=== PATIENT | female | born 1990 | race African-American/Black ===

== ENCOUNTER 2017-02-12 18:59 | Emergency (ER) | payer OTHER ==
[~2017-02-12] VITALS: Ht 160 cm; Wt 150.5 kg
[2017-02-12 19:09] VITALS: BP 151/86; PULSE 78; RESP 16; TEMP 98.3; O2SAT 98
[2017-02-12] MEDS ORDERED: MIREIUD I-UTERINE (19:30)
[2017-02-12] MEDS ORDERED: CYCL1TAB29 PO (19:50)
[2017-02-12] MEDS ORDERED: IBUP800T23 PO (19:50)
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
== END 2017-02-12 20:00 | disposition home or self-care (01) ==
LOC: PHED 18:59 → PHEFT 20:00
DX: S16.1XXA Strain of muscle, fascia and tendon at neck level, initial encounter (principal); M62.838 Other muscle spasm; I10 Essential (primary) hypertension; Z87.2 Personal history of diseases of the skin and subcutaneous tissue; Z87.19 Personal history of other diseases of the digestive system; V89.2XXA Person injured in unspecified motor-vehicle accident, traffic, initial encounter; Y92.410 Unspecified street and highway as the place of occurrence of the external cause
CPT/HCPCS: 99283

== ENCOUNTER 2017-06-02 17:26 | Emergency (ER) | payer OTHER ==
[~2017-06-02] VITALS: Ht 160 cm; Wt 145.0 kg
[~2017-06-02 17:26] MED LIST: CYCL1TAB29 PO; IBUP800T23 PO; MIREIUD I-UTERINE
[2017-06-02 17:28] VITALS: BP 167/78; PULSE 67; RESP 18; TEMP 98.7; O2SAT 97
--- NOTE | 2017-06-02 17:38 | PD ---
Physical Exam Time Seen by Provider: 17:36 Narrative 26yop F c/o left sided chest pain and left arm pain since this morning. Sent by Dr. Piña. Denies SOB. +dizziness and lightheadedness. Pain is constant. Patient seen in triage. VS reviewed. Awaiting bed placement. Data Data Last Documented VS Vital Signs Date Time Temp Pulse Resp B/P Pulse Ox O2 Delivery O2 Flow Rate FiO2 06/02/17 17:28 98.7 67 18 167/78 97 Room Air [facility] Supervised Visit with DONAVAN: Zo Leger Jun 02, 2017 17:38
--- NOTE | 2017-06-02 18:01 | PD ---
HPI Chief Complaint: Chest Pain Time Seen by Provider: 18:01 Travel History International Travel<30 days: No Contact w/Intl Traveler<30days: No Traveled to known affect area: No History of Present Illness HPI 26-year-old female came to the emergency room with history of left-sided chest pain that started 9:30 to 10 AM today. It's radiating down her left arm which is squeezing kind of pain. The pain was not easing up so she went to see her primary care. They gave her 2 baby aspirin and a nitroglycerin and sent her to the emergency room. Patient does not think the medication helped her with the pain. She has never experienced this kind of pain before. No history of shortness of breath. No aggravating or relieving factors identified. She is not a smoker. No history of heart attack among young people in the family or sudden cardiac deaths. [facility] Past Medical History Narrative Medical List of her past medical, surgical, social and family history was reviewed from the nursing note. Anemia: Yes ( RELATED) Diabetes: No Diminished Hearing: No Hypertension: Yes Immune Disorder: No Integumentary: Yes (EZCEMA) Immunizations Current: No Pancreatitis: Yes ?: Not Menopausal: No : 1 Para: 1 Miscarriage: 0 Past Surgical History Section: Yes Social History Alcohol Use: No Tobacco Use: No Substance Use: No Allergies-Medications (Allergen,Severity, Reaction): Coded Allergies: No Known Allergies (Verified , 06/02/17) Comments No known drug allergies. Reported Meds & Prescriptions Reported Meds & Active Scripts Active EC-Naprosyn (Naproxen) 500 Mg Tabdr 500 Mg PO BID PRN Narrative Medication List of his home medications reviewed from the nursing note. Review of Systems Except as stated in HPI: all other systems reviewed are Neg Physical Exam Narrative GENERAL: Awake, alert, morbidly obese, mild distress SKIN: Focused skin assessment warm/dry. HEAD: Atraumatic. Normocephalic. EYES: Pupils equal and round. No scleral icterus. No injection or drainage. ENT: No nasal bleeding or discharge. Mucous membranes pink and moist. NECK: Trachea midline. No JVD. CARDIOVASCULAR: Regular rate and rhythm. No murmur appreciated. Patient was tender on chest wall palpation on the left side. RESPIRATORY: No accessory muscle use. Clear to auscultation. Breath sounds equal bilaterally. GASTROINTESTINAL: Abdomen soft, non-tender, nondistended. Hepatic and splenic margins not palpable. MUSCULOSKELETAL: No obvious deformities. No clubbing. No cyanosis. No edema. NEUROLOGICAL: Awake and alert. No obvious cranial nerve deficits. Motor grossly within normal limits. Normal speech. PSYCHIATRIC: Appropriate mood and affect; insight and judgment normal. Data Data Last Documented VS Vital Signs Date Time Temp Pulse Resp B/P Pulse Ox O2 Delivery O2 Flow Rate FiO2 06/02/17 21:37 62 20 132/70 100 06/02/17 19:36 Room Air 06/02/17 17:28 98.7 Orders Electrocardiogram (06/02/17 18:10) Basic Metabolic Panel (Bmp) (06/02/17 18:10) Ckmb (Isoenzyme) Profile (06/02/17 18:10) Complete Blood Count With Diff (06/02/17 18:10) Magnesium (Mg) (06/02/17 18:10) Prothrombin Time / Inr (Pt) (06/02/17 18:10) Act Partial Throm Time (Ptt) (06/02/17 18:10) Troponin I (06/02/17 18:10) Chest, Single Ap (06/02/17 18:10) Ecg Monitoring (06/02/17 18:10) Bilateral Bp Monitoring (06/02/17 18:10) Iv Access Insert/Monitor (06/02/17 18:10) Oximetry (06/02/17 18:10) Oxygen Administration (06/02/17 18:10) Sodium Chloride 0.9% Flush (Ns Flush) (06/02/17 18:15) Ed Urine Pregnancytest Poc (06/02/17 18:10) Ketorolac Inj (Toradol Inj) (06/02/17 18:15) CKMB (06/02/17 19:50) CKMB% (06/02/17 19:50) Labs Laboratory Tests Test 06/02/17 19:50 White Blood Count 11.8 TH/MM3 Red Blood Count 3.80 MIL/MM3 Hemoglobin 11.2 GM/DL Hematocrit 34.0 % Mean Corpuscular Volume 89.4 FL Mean Corpuscular Hemoglobin 29.5 PG Mean Corpuscular Hemoglobin 33.0 % Concent Red Cell Distribution Width 14.0 % Platelet Count 257 TH/MM3 Mean Platelet Volume 10.8 FL Neutrophils (%) (Auto) 70.1 % Lymphocytes (%) (Auto) 25.6 % Monocytes (%) (Auto) 3.1 % Eosinophils (%) (Auto) 0.5 % Basophils (%) (Auto) 0.7 % Neutrophils # (Auto) 8.3 TH/MM3 Lymphocytes # (Auto) 3.0 TH/MM3 Monocytes # (Auto) 0.4 TH/MM3 Eosinophils # (Auto) 0.1 TH/MM3 Basophils # (Auto) 0.1 TH/MM3 CBC Comment DIFF FINAL Differential Comment Prothrombin Time 11.1 SEC Prothromb Time International 1.0 RATIO Ratio Activated Partial 26.2 SEC Thromboplast Time Sodium Level 137 MEQ/L Potassium Level 4.0 MEQ/L Chloride Level 103 MEQ/L Carbon Dioxide Level 27.5 MEQ/L Anion Gap 7 MEQ/L Blood Urea Nitrogen 8 MG/DL Creatinine 0.75 MG/DL Estimat Glomerular Filtration 112 ML/MIN Rate Random Glucose 84 MG/DL Calcium Level 8.6 MG/DL Magnesium Level 2.0 MG/DL Total Creatine Kinase 175 U/L Creatine Kinase MB 0.5 NG/ML Troponin I LESS THAN 0.02 NG/ML MDM Medical Decision Making Medical Screen Exam Complete: Yes Emergency Medical Condition: Yes Medical Record Reviewed: Yes Interpretation(s) Twelve-lead EKG was reviewed by me. Normal sinus rhythm, normal axis, nonspecific ST-T wave changes. Heart rate of 71 bpm. Differential Diagnosis ACS, chest wall pain Narrative Course 7:16 PM awaiting for the blood test result. Patient was signed over to the oncoming ER physician. Procedures EKG Prior to Arrival: No Scripts Naproxen DR (EC-Naprosyn)500 Mg [id number] Mg PO BID PRN (PAIN GREATER THAN 5) # 10 TAB Ref 0 Prov:Karen Simmons MD 06/02/17 Ursula Aguilera MD Jun 02, 2017 18:01
[2017-06-02] MEDS ORDERED: SODIUM CHLORIDE 0.9% FLUSH 10 ML FLUSH IVF PRN (18:15)
[2017-06-02] MEDS ORDERED: KETOROLAC TROMETHAMINE 30 MG/ML (IVP) VIAL IV PUSH ONE (18:15)
--- NOTE | 2017-06-02 18:41 | RADRPT ---
EXAM DATE/TIME: 06/02/2017 18:06 [facility] COMPARISON: No previous studies available for comparison. INDICATIONS : Chest pain. MEDICAL HISTORY : None. SURGICAL HISTORY : None. ENCOUNTER: Initial ACUITY: 1 day PAIN SCORE: 10/10 LOCATION: Bilateral chest FINDINGS: A single view of the chest demonstrates the lungs to be symmetrically aerated without evidence of mas s, infiltrate or effusion. The cardiomediastinal contours are unremarkable. Osseous structures are intact. CONCLUSION: No evidence of acute cardiopulmonary disease. Memo Leonard MD on June 02, 2017 at 18:38 Board Certified Radiologist. This report was verified electronically.
--- NOTE | 2017-06-02 19:06 | PD ---
Data Data Last Documented VS Vital Signs Date Time Temp Pulse Resp B/P Pulse Ox O2 Delivery O2 Flow Rate FiO2 06/02/17 19:36 98 Room Air 06/02/17 19:33 65 20 136/71 141/63 06/02/17 17:28 98.7 Orders Electrocardiogram (06/02/17 18:10) Basic Metabolic Panel (Bmp) (06/02/17 18:10) Ckmb (Isoenzyme) Profile (06/02/17 18:10) Complete Blood Count With Diff (06/02/17 18:10) Magnesium (Mg) (06/02/17 18:10) Prothrombin Time / Inr (Pt) (06/02/17 18:10) Act Partial Throm Time (Ptt) (06/02/17 18:10) Troponin I (06/02/17 18:10) Chest, Single Ap (06/02/17 18:10) Ecg Monitoring (06/02/17 18:10) Bilateral Bp Monitoring (06/02/17 18:10) Iv Access Insert/Monitor (06/02/17 18:10) Oximetry (06/02/17 18:10) Oxygen Administration (06/02/17 18:10) Sodium Chloride 0.9% Flush (Ns Flush) (06/02/17 18:15) Ed Urine Pregnancytest Poc (06/02/17 18:10) Ketorolac Inj (Toradol Inj) (06/02/17 18:15) CKMB (06/02/17 19:50) CKMB% (06/02/17 19:50) Labs Laboratory Tests Test 06/02/17 19:50 White Blood Count 11.8 TH/MM3 Red Blood Count 3.80 MIL/MM3 Hemoglobin 11.2 GM/DL Hematocrit 34.0 % Mean Corpuscular Volume 89.4 FL Mean Corpuscular Hemoglobin 29.5 PG Mean Corpuscular Hemoglobin 33.0 % Concent Red Cell Distribution Width 14.0 % Platelet Count 257 TH/MM3 Mean Platelet Volume 10.8 FL Neutrophils (%) (Auto) 70.1 % Lymphocytes (%) (Auto) 25.6 % Monocytes (%) (Auto) 3.1 % Eosinophils (%) (Auto) 0.5 % Basophils (%) (Auto) 0.7 % Neutrophils # (Auto) 8.3 TH/MM3 Lymphocytes # (Auto) 3.0 TH/MM3 Monocytes # (Auto) 0.4 TH/MM3 Eosinophils # (Auto) 0.1 TH/MM3 Basophils # (Auto) 0.1 TH/MM3 CBC Comment DIFF FINAL Differential Comment Prothrombin Time 11.1 SEC Prothromb Time International 1.0 RATIO Ratio Activated Partial 26.2 SEC Thromboplast Time Sodium Level 137 MEQ/L Potassium Level 4.0 MEQ/L Chloride Level 103 MEQ/L Carbon Dioxide Level 27.5 MEQ/L Anion Gap 7 MEQ/L Blood Urea Nitrogen 8 MG/DL Creatinine 0.75 MG/DL Estimat Glomerular Filtration 112 ML/MIN Rate Random Glucose 84 MG/DL Calcium Level 8.6 MG/DL Magnesium Level 2.0 MG/DL Total Creatine Kinase 175 U/L Creatine Kinase MB 0.5 NG/ML Troponin I LESS THAN 0.02 NG/ML [facility] Medical Record Reviewed: Yes Supervised Visit with DONAVAN: No Interpretation(s) Last Impressions Chest X-Ray 06/02/17 1810 Signed Impressions: Service Date/Time: Friday, June 02, 2017 18:06 - CONCLUSION: No evidence of acute cardiopulmonary disease. Memo Leonard MD Differential Diagnosis Chest wall pain related to costochondritis, versus musculoskeletal strain, versus acute coronary syndrome Narrative Course During the course of the patients emergency department visit, the patients history, examination, and differential diagnosis were reviewed with the patient. The patient had IV access obtained and blood work sent for analysis. The patient's case was checked out to me by Dr. Aguilera. Please see her complete history and physical. The patient was initially provided Toradol 30 mg IV for pain. The patients laboratory studies were reviewed and remarkable for a white count of 11.8, hemoglobin 11.2, platelets 257 with 70.1 neutrophils, basic metabolic profile is unremarkable, magnesium 2.0, CPK 175, troponin I less than 0.02 ruling out an acute coronary syndrome as the patient reports having constant chest pain since early this morning. PT 11.1, PTT 26.2. Radiology studies were reviewed and remarkable for a chest x-ray that shows no evidence of acute cardiopulmonary disease. The patient will be discharged home with a chip soliman for an anti-inflammatory pain medication. The patient is resting comfortably and feels better, is alert and in no distress. The patients results and examination findings were discussed with the patient. The repeat examination is unremarkable and benign. The history, exam, diagnostic testing, and current condition do not suggest any significant pathology to warrant further testing, continued ED treatment, admission, or surgical evaluation at this point. The vital signs have been stable. The patient does not have uncontrollable pain, intractable vomiting, or other significant symptoms. The patient's condition is stable and appropriate for discharge. The patient will pursue further outpatient evaluation with a primary care physician or other designated or consulting physician as indicated in the discharge instructions. The patient expressed understanding and was agreeable with this plan. Diagnosis Primary Impression: Chest wall pain Referrals: Primary Care Physician 1 week Patient Instructions: Chest Wall Pain (ED), General Instructions Med/Other Pt SpecificInfo: Prescription(s) given Scripts Naproxen DR (EC-Naprosyn)500 Mg [id number] Mg PO BID PRN (PAIN GREATER THAN 5) # 10 TAB Ref 0 Prov:Karen Simmons MD 06/02/17 Disposition: 01 DISCHARGE HOME Condition: Stable Karen Simmons MD Jun 02, 2017 19:06
[2017-06-02 19:33] VITALS: BP_SYST 136; BP_SYST 141; BP_DIAS 63; BP_DIAS 71; PULSE 65; RESP 20; O2SAT 98
[2017-06-02 20:38] LABS: AUTOMATED NEUTROPHIL # 8.3 TH/MM3 (1.8-7.7); BASOPHIL # 0.1 TH/MM3 (0-0.2); BASOPHIL % 0.7 % (0.0-2.0); EOSINOPHIL # 0.1 TH/MM3 (0-0.4); EOSINOPHIL % 0.5 % (0.0-4.0); HEMO FLAGS DIFF FINAL; LYMPH % 25.6 % (9.0-44.0); MEAN CELL VOLUME 89.4 FL (80.0-100.0); MEAN CORPUSCULAR HEMOGLOBIN 29.5 PG (27.0-34.0); MONO % 3.1 % (0.0-8.0); NEUT % 70.1 % (16.0-70.0); PLATELET COUNT 257 TH/MM3 (150-450); WHITE BLOOD COUNT 11.8 TH/MM3 (4.0-11.0)
[2017-06-02 20:49] LABS: APTT (PATIENT) 26.2 SEC (24.3-30.1); PROTHROMBIN TIME - PATIENT 11.1 SEC (9.8-11.6)
[2017-06-02 20:50] LABS: ANION GAP 7 MEQ/L (5-15); BICARBONATE 27.5 MEQ/L (21.0-32.0); BLOOD UREA NITROGEN 8 MG/DL (7-18); CHLORIDE 103 MEQ/L (98-107); GLOMERULAR FILTRATION RATE 112 ML/MIN (>89); SODIUM (NA) 137 MEQ/L (136-145)
[2017-06-02 20:56] LABS: CREATINE KINASE 175 U/L (26-192)
[2017-06-02 21:09] LABS: CKMB 0.5 NG/ML (0.5-3.6)
[2017-06-02] MEDS ORDERED: EC-N500T PO (21:20)
[2017-06-02 21:37] VITALS: BP 132/70
--- NOTE | 2017-06-03 05:09 | EKG ---
Date Performed: 06/02/2017 Time Performed: 18:31:22 PTAGE: 26 years EKG: Sinus rhythm WITH SINUS ARRHYTHMIA MINIMAL VOLTAGE CRITERIA FOR LVH, CONSIDER NORMAL VARIANT BORDERLINE ECG Dominic red to prior tracing no significant change PREVIOUS TRACING : 10/18/2015 18.47 DOCTOR: Timothy Bhatia Interpretating Date/Time 06/03/2017 05:08:45
== END 2017-06-02 22:38 | disposition home or self-care (01) ==
LOC: NEPC 17:26
DX: R07.89 Other chest pain (principal); M79.602 Pain in left arm; R94.31 Abnormal electrocardiogram [ECG] [EKG]; I10 Essential (primary) hypertension; Z87.2 Personal history of diseases of the skin and subcutaneous tissue; Z87.19 Personal history of other diseases of the digestive system
CPT/HCPCS: 71010; 80048; 82550; 82552; 83735; 84484; 84703; 85025; 85610; 85730; 93005; 96374; 99285; J1885

== ENCOUNTER 2017-06-15 22:19 | Emergency (ER) | payer OTHER ==
[~2017-06-15 22:19] MED LIST changes: -CYCL1TAB29 PO; +EC-N500T PO; -IBUP800T23 PO; -MIREIUD I-UTERINE
[2017-06-15 22:22] VITALS: BP 150/91; PULSE 81; RESP 16; TEMP 98.7; O2SAT 97
[2017-06-15] MEDS ORDERED: FAMOTIDINE INJ 20 MG in SODIUM CHLORIDE 0.9% INJ 98 ML IV STA (22:51)
[2017-06-15] MEDS ORDERED: methylPREDNISolone SOD SUCC 125 MG/2 ML VIAL IV PUSH ONE (23:00)
[2017-06-15] MEDS ORDERED: diphenhydrAMINE HCL 50 MG/ML VIAL IV PUSH ONE (23:00)
[2017-06-15] MEDS ORDERED: SODIUM CHLOR 0.9% 1000 ML INJ 1,000 ML IV ONE (23:15)
[2017-06-15] MEDS ORDERED: MEDR4PAK PO (23:21)
[2017-06-15] MEDS ORDERED: BENA25TA6 PO (23:21)
[2017-06-15] MEDS ORDERED: FAMO20TA2 PO (23:21)
[2017-06-15] MEDS ORDERED: EPIP0.3I IM (23:21)
--- NOTE | 2017-06-15 23:22 | PD ---
HPI Chief Complaint: Allergic/Adverse Reaction Time Seen by Provider: 22:49 Travel History International Travel<30 days: No Contact w/Intl Traveler<30days: No Traveled to known affect area: No History of Present Illness HPI The patient is a 26 year old female who presents to the [facility] emergency department with a history of developing an allergic reaction approximately 10-15 minutes prior to arrival. The patient reports that she was approximately 7-10 minutes into drinking a cup of cranberry juice with vodka when she began to have generalized itching. She reports that she did have some abdominal cramping and a sensation that she needed to move her bowels, however she has not. She reports that she has shortness of breath with exertion when coming back to the emergency department bed. She reports that she had a similar reaction with drinking vodka last year. She reports that she had also tried a new topical medication and was unsure whether it was related to that or the vodka, however this evening she was drinking the same vodka again and had a similar reaction. The patient arrives with generalized hives. The patient reports having nausea. She denies having any chest pain. On review of systems , she denies having any recent fevers, cough, congestion, neck pain, vomiting, diarrhea, urinary symptoms, or neurologic symptoms. [facility] Past Medical History Narrative Medical The patient's past medical history is significant for eczema, history of hypertension. Anemia: Yes ( RELATED) Diabetes: No Diminished Hearing: No Hypertension: Yes (no meds) Immune Disorder: No Integumentary: Yes (EZCEMA) Immunizations Current: No Pancreatitis: Yes ?: Not Menopausal: No : 1 Para: 1 Miscarriage: 0 : 0 Past Surgical History Narrative Surgical The patient's past surgical history is significant for a . Section: Yes Social History Alcohol Use: Yes (RARE) Tobacco Use: No Substance Use: No Allergies-Medications (Allergen,Severity, Reaction): Coded Allergies: No Known Allergies (Verified , 06/02/17) Reported Meds & Prescriptions Reported Meds & Active Scripts Active Medrol Dosepak (Methylprednisolone) 4 Mg Dspk 4 Mg PO DIRECTED Per Pharmacist direction Benadryl Allergy (Diphenhydramine HCl) 25 Mg Tablet 1 Tab PO Q6HR 3 Days Famotidine 20 Mg Tab 20 Mg PO BID 7 Days Epipen 2-Luiz Inj (Epinephrine) 0.3 Mg/0.3 Ml Pfpen 0.3 Mg IM ONCE PRN EC-Naprosyn (Naproxen) 500 Mg Tabdr 500 Mg PO BID PRN Review of Systems Except as stated in HPI: all other systems reviewed are Neg General / Constitutional: No: Fever Eyes: No: Visual changes HENT: No: Headaches Cardiovascular: Positive: Dyspnea on exertion, No: Chest Pain or Discomfort Respiratory: No: Cough, Shortness of Breath Gastrointestinal: Positive: Nausea, Abdominal Pain (cramping prior to arrival) , No: Vomiting, Diarrhea, Hematemesis, Hematochezia, Constipation, Changes in Bowel Habits, Indigestion, Loss of Appetite Genitourinary: No: Dysuria Musculoskeletal: No: Pain Skin: Positive Rash, Positive Itching, Positive Hives Neurologic: No: Weakness, Focal Abnormalities, Change in Mentation, Slurred Speech, Sensory Disturbance Psychiatric: No: Depression Endocrine: No: Polydipsia Hematologic/Lymphatic: No: Easy Bruising Physical Exam Narrative General: The patient is a well-developed well-nourished female, uncomfortable appearing on my arrival to the room due to diffuse skin burning/itching. Head and Neck exam: Head is normocephalic atraumatic. Eyes: EOMI, pupils are equal round and reactive to light. Nose: Midline septum with pink mucous membranes Mouth: Dentition unremarkable. Moist mucus membranes. Posterior oropharynx is not erythematous. No tonsillar hypertrophy. Uvula midline. Airway patent. No tongue swelling. No posterior oropharynx swelling. Neck: No palpable lymphadenopathy. No nuchal rigidity. No thyromegaly. Cardiovascular: Regular rate and rhythm without murmurs, gallops, or rubs. Lungs: Clear to auscultation bilaterally. No wheezes, rhonchi, or rales. Abdomen: Soft, without tenderness to palpation in all 4 quadrants of the abdomen. No guarding, rebound, or rigidity. Normal bowel sounds are audible. No tenderness on palpation of McBurney's point. Extremities: No clubbing, cyanosis, or edema. 2+ pulses in all 4 extremities. tenderness on palpation. Back: No spinous process tenderness to palpation. No costovertebral angle tenderness to palpation. Neurologic Exam: Grossly nonfocal. Skin Exam: The patient has skin erythema with scattered urticaria noted on her upper and lower extremities as well as her trunk. Data Data Last Documented VS Vital Signs Date Time Temp Pulse Resp B/P (MAP) Pulse Ox O2 Delivery O2 Flow Rate FiO2 06/16/17 01:05 06/15/17 22:22 98.7 81 16 97 Room Air Orders Orders Iv Access Insert/Monitor (06/15/17 22:51) Ecg Monitoring (06/15/17 22:51) Oximetry (06/15/17 22:51) Methylprednisolone So Succ Inj (Solumedr (06/15/17 23:00) Diphenhydramine Inj (Benadryl Inj) (06/15/17 23:00) Famotidine Inj (Pepcid Inj) (06/15/17 22:51) Sodium Chlor 0.9% 1000 Ml Inj (Ns 1000 M (06/15/17 23:15) Albuterol-Ipratropium Neb (Duoneb Neb) (06/15/17 23:45) MDM Medical Decision Making Medical Screen Exam Complete: Yes Emergency Medical Condition: Yes Medical Record Reviewed: Yes Differential Diagnosis Allergic reaction, versus angioedema Narrative Course During the course of the patients emergency department visit, the patients history, examination, and differential diagnosis were reviewed with the patient. The patient had IV access obtained and blood work sent for analysis. The patient was placed on a air sampling and monitoring with oximetry and blood pressure monitoring. The patient was initially provided famotidine 20 mg IV, Benadryl 25 mg IV (the patient took Benadryl 25 mg by mouth prior to arrival), Solu-Medrol 125 mg IV, normal saline 1 L IV fluid bolus, and a DuoNeb 1. The patient will be discharged home with a prescription for Medrol Dosepak taper , Benadryl, famotidine, and an EpiPen. The patient was instructed to avoid vodka in the future. The patient was observed and had improvement in her symptoms. The patient is resting comfortably and feels better, is alert and in no distress. The patients results and examination findings were discussed with the patient. The repeat examination is unremarkable and benign. The history, exam, diagnostic testing, and current condition do not suggest any significant pathology to warrant further testing, continued ED treatment, admission, or surgical evaluation at this point. The vital signs have been stable. The patient does not have uncontrollable pain, intractable vomiting, or other significant symptoms. The patient's condition is stable and appropriate for discharge. The patient will pursue further outpatient evaluation with a primary care physician or other designated or consulting physician as indicated in the discharge instructions. The patient expressed understanding and was agreeable with this plan. Diagnosis Primary Impression: Allergic reaction Qualified Codes: T78.40XA - Allergy, unspecified, initial encounter Referrals: Primary Care Physician 2 days Patient Instructions: General Allergic Reaction (ED), General Instructions Med/Other Pt SpecificInfo: Prescription(s) given Scripts Methylprednisolone Dosepak (Medrol Dosepak) 4 Mg Dspk 4 MG PO DIRECTED, #1 DSPK 0 Refills Per Pharmacist direction Prov: Karen Simmons MD 06/15/17 Diphenhydramine HCl (Benadryl Allergy) 25 Mg Tablet 1 TAB PO Q6HR for 3 Days Prov: Karen Simmons MD 06/15/17 Famotidine (Famotidine) 20 Mg Tab 20 MG PO BID for 7 Days, #60 TAB 0 Refills Prov: Karen Simmons MD 06/15/17 Epinephrine Inj (Epipen 2-Luiz Inj) 0.3 Mg/0.3 Ml Pfpen 0.3 MG IM ONCE Y for ALLERGIC REACTION, #1 PACK 0 Refills Prov: Karen Simmons MD 06/15/17 Disposition: 01 DISCHARGE HOME Condition: Stable Karen Simmons MD Jun 15, 2017 23:22
[2017-06-15] MEDS ORDERED: RESP: ALBUTEROL 2.5 MG/IPRATROPIUM 0.5 MG NEB (SCH) NEB ONE (23:45)
== END 2017-06-16 01:38 | disposition home or self-care (01) ==
LOC: NEPE 22:19
DX: T78.40XA Allergy, unspecified, initial encounter (principal); L53.9 Erythematous condition, unspecified; R11.0 Nausea; R06.02 Shortness of breath; D64.9 Anemia, unspecified; I10 Essential (primary) hypertension; K85.90 Acute pancreatitis without necrosis or infection, unspecified
CPT/HCPCS: 94664; 96374; 96375; 99284; J1200; J2930; J7030